=== PATIENT | female | born 1975 | race Two or more races ===

== ENCOUNTER 2024-09-19 13:15 | Emergency (ER) | payer OTHER ==
[~2024-09-19] VITALS: Ht 157.5 cm; Wt 58.1 kg
[2024-09-19] MEDS ORDERED: CELEXA40 MG PO (14:48)
[2024-09-19] MEDS ORDERED: VALSARTAN80 MG PO (14:49)
[2024-09-19] MEDS ORDERED: CLONAZEPAM0.5 M1 PO (14:53)
[2024-09-19] MEDS ORDERED: REMERON15 M1 PO (14:53)
[2024-09-19] MEDS ORDERED: NASAL MIST126 ML (14:54)
[2024-09-19 15:44] LABS: BASO % 0.4 % (0.1-1.2); EOS # 0.22 (0.04-0.54); EOS % 1.8 % (0.7-7.0); LYMPH # 3.64 (1.18-3.74); LYMPH % 30.6 % (19.3-53.1); MEAN PLATELET VOLUME 10.70 fl (9.4-12.4); MONO # 0.76 (0.24-0.82); MONO % 6.4 % (4.7-12.5); NEUT # 7.23 (1.56-6.13); NEUT % 60.7 % (34.0-71.1); RED CELL DISTRIBUTION WIDTH 13.2 % (11.6-14.4)
[2024-09-19 16:20] LABS: BUN CREA RATIO 13.0 (7.0-25.0); CREATININE SERUM 0.91 mg/dL (0.55-1.02); GFR 66.55; GLUCOSE FASTING 100.0 mg/dL (65-100); OSMOLALITY SERUM 283.0 MOSM/KG (275-295); TSH 1.67 uIU/mL (0.358-3.74)
[2024-09-19 16:21] LABS: COVID-19 AG NEGATIVE (NEGATIVE)
== END 2024-09-19 18:49 | disposition home or self-care (01) ==
LOC: ER 13:15
DX: F41.9 Anxiety disorder, unspecified (principal); R53.81 Other malaise; Z20.822 Contact with and (suspected) exposure to COVID-19; Z88.6 Allergy status to analgesic agent